=== PATIENT | male | born 1955 | race Caucasian/White ===

== ENCOUNTER 2019-10-30 15:18 | Observation (INO) | payer MEDICARE ==
--- NOTE | 2019-10-30 15:40 | ED ---
Abdominal Pain/Male - HPI Summary HPI Summary: Patient is a 64 y/o M presenting to the ED via EMS for a chief complaint of RUQ abdominal pain began at 16:30 on 10/29/19. Patient was transferred ED to ED from [facility] with a diagnosis of cholelithiasis. No medications were administered by EMS. Patient was seen at [facility] for RUQ abdominal pain, nausea , and vomiting, and had a CT and ultrasound performed. Labs at [facility] showed normal LFTs. At [facility], patient was given Zosyn, Protonix, and Zofran. Dr. Redmond from surgery recommended the patient be admitted to medicine. Patient states he ate judd, pumpkin pie, and chocolate brownies on 10/29/19, after which he began to feel RUQ abdominal pain. He later felt nausea and began vomiting around 17:00 on 10/29/19. He tried using homeopathic remedies including vinegar, peppermint tea, and a probiotic without relief. He rates his pain at that time was 10/10 in severity, but is now 9/10 in severity. Patient denies any fever, chills, erythema of eyes, sore throat, CP, SOB, cough, dysuria , hematuria, myalgia, edema, rash, or dizziness. PMHx is significant for non- insulin dependent DM, and PSHx is significant for back surgery. Patient lives in [place], [place]. - History of Current Complaint Chief Complaint: EDAbdPain Stated Complaint: ABD PAIN FROM WESTERN Time Seen by Provider: 10/30/19 15:32 Hx Obtained From: Patient Onset/Duration: Sudden Onset, Still Present Timing: Constant Severity Initially: Severe Severity Currently: Severe Pain Intensity: 9 Pain Scale Used: 0-10 Numeric Location: Discrete At: RUQ Radiates: No Aggravating Factor(s): Nothing Alleviating Factor(s): Nothing, Other: - No relief with vinegar, peppermint tea , or probiotic Associated Signs And Symptoms: Positive: Nausea, Vomiting. Negative: Fever, Cough, Chest Pain, Dizzy, Urinary Symptoms - Negative dysuria or hematuria - Allergies/Home Medications Allergies/Adverse Reactions: Allergies Allergy/AdvReac Type Severity Reaction Status Date / Time tizanidine Allergy Severe AFTER Verified 06/09/19 13:29 TAKING DEVELOPED TYPII DM & PANCRETITIS acetaminophen Allergy Rash Verified 06/09/19 13:29 [From Darvocet-N] ciprofloxacin Allergy Diarrhea Verified 06/09/19 13:29 levofloxacin [From Levaquin] Allergy Diarrhea Verified 06/09/19 13:29 propoxyphene Allergy Rash Verified 06/09/19 13:29 [From Darvocet-N] PMH/Surg Hx/FS Hx/Imm Hx Previously Healthy: Yes Endocrine/Hematology History: Reports: Hx Diabetes - Resolved, Hx Thyroid Disease - PARTIAL THYROIDECTOMY Denies: Hx Bone Marrow Disease, Hx Anemia Cardiovascular History: Denies: Hx Congestive Heart Failure, Hx Hypertension, Hx Pacemaker/ICD Respiratory History: Reports: Hx Seasonal Allergies Denies: Hx Asthma, Hx Sleep Apnea GI History: Reports: Hx Gastroesophageal Reflux Disease - FROM RECENT PANCREATITIS Denies: Hx Crohn's Disease, Hx Irritable Bowel - DOES HAVE SENSITIVE STOMACH History: Denies: Hx Dialysis, Hx Renal Disease Musculoskeletal History: Reports: Hx Arthritis, Hx Back Problems - multiple back surguries, Hx Fibromyalgia Denies: Hx Bursitis, Hx Tendonitis Sensory History: Reports: Hx Contacts or Glasses Denies: Hx Cataracts, Hx Legally Blind, Hx Deafness, Hx Hearing Aid Opthamlomology History: Reports: Hx Contacts or Glasses Denies: Hx Cataracts, Hx Legally Blind EENT History: Denies: Hx Deafness Neurological History: Denies: Hx Headaches, Hx Seizures Psychiatric History: Reports: Hx Anxiety, Hx Depression, Hx Panic Disorder - Surgical History Surgical History: Yes Surgery Procedure, Year, and Place: SPINAL CORD STIMULATOR 2011/ [facility] PER DR JERNIGAN). KNEE SCOPES x3(RT X2, LEFT X1). LOW BACK SURGERY 04/2018 DOUBLE LAMINECTOMY- 2011 [facility] SURGERY. 2 CERVICAL SPINE FUSIONS(PLATES/SCREWS). RT SHOULDER FOR PINCHED NERVES. RT MIDDLE FINGER TRAUMATIC AMPUTATON AND DEBRIDEMNET. ERCP WITH SEPSIS Hx Anesthesia Reactions: No - Immunization History Date of Tetanus Vaccine: Unk Date of Influenza Vaccine: None Immunizations Up to Date: Yes Infectious Disease History: No Infectious Disease History: Denies: Traveled Outside the [place] in Last 30 Days - Family History Known Family History: Negative: Hypertension, Diabetes - Social History Occupation: Employed Full-time Lives: Alone Alcohol Use: Rare Hx Substance Use: Yes Substance Use Type: Reports: Marijuana Substance Use Comment - Amount & Last Used: weekly Hx Tobacco Use: Yes Smoking Status (MU): Former Smoker Review of Systems Negative: Fever, Chills Negative: Erythema Negative: Sore Throat Negative: Chest Pain Negative: Shortness Of Breath, Cough Positive: Abdominal Pain - RUQ, Vomiting, Nausea Negative: dysuria, hematuria Negative: Myalgia, Edema Negative: Rash Neurological: Other - Negative dizziness All Other Systems Reviewed And Are Negative: Yes Physical Exam - Summary Physical Exam Summary: Constitutional: Well-developed, Well-nourished, Alert. (-) Distressed Skin: Warm, Dry HENT: Normocephalic; Atraumatic Eyes: Conjunctiva normal Neck: Musculoskeletal ROM normal neck. (-) JVD, (-) Stridor, (-) Tracheal deviation Cardio: Rhythm regular, rate normal, Heart sounds normal; Intact distal pulses; The pedal pulses are 2+ and symmetric. Radial pulses are 2+ and symmetric. (-) Murmur Pulmonary/Chest wall: Effort normal. (-) Respiratory distress, (-) Wheezes, (-) Rales Abd: Soft, (-) Distension, (-) Guarding, (-) Rebound. RUQ tenderness Musculoskeletal: (-) Edema Lymph: (-) Cervical adenopathy Neuro: Alert, Oriented x3 Psych: Mood and affect Normal Triage Information Reviewed: Yes Vital Signs On Initial Exam: Initial Vitals Temp Pulse Resp BP Pulse Ox 99.3 F 67 17 163/87 97 10/30/19 15:21 10/30/19 15:21 10/30/19 15:21 10/30/19 15:21 10/30/19 15:21 Vital Signs Reviewed: Yes Procedures - Sedation Patient Received Moderate/Deep Sedation with Procedure: No Diagnostics - Vital Signs Vital Signs Temp Pulse Resp BP Pulse Ox 10/30/19 15:21 99.3 F 67 17 163/87 97 - Laboratory Result Diagrams: 10/30/19 16:54 Lab Statement: Any lab studies that have been ordered have been reviewed, and results considered in the medical decision making process. Abdominal Pain Male Course/Dx - Course Course Of Treatment: Patient is a 64 y/o M presenting to the ED via EMS for a chief complaint of RUQ abdominal pain began at 16:30 on 10/29/19. Patient was transferred ED to ED from [facility] with a diagnosis of cholelithiasis. No medications were administered by EMS. Patient was seen at [facility] for RUQ abdominal pain, nausea, and vomiting, and had a CT and ultrasound performed. Labs at [facility] showed normal LFTs. At [facility], patient was given Zosyn, Protonix, and Zofran. Dr. Redmond from surgery recommended the patient be admitted to medicine. Patient states he ate judd, pumpkin pie, and chocolate brownies on 10/29/19, after which he began to feel RUQ abdominal pain. He later felt nausea and began vomiting around 17:00 on 10/29/19. He tried using homeopathic remedies including vinegar, peppermint tea, and a probiotic without relief. He rates his pain at that time was 10/10 in severity, but is now 9/10 in severity. Patient denies any fever, chills, erythema of eyes, sore throat, CP , SOB, cough, dysuria, hematuria, myalgia, edema, rash, or dizziness. PMHx is significant for non-insulin dependent DM, and PSHx is significant for back surgery. On exam, RUQ tenderness. In the ED course, patient was given morphine 4 mg IV and fluids. At 16:45, Dr. Rothman agrees to admit the patient to [facility] with a diagnosis of cholelithiasis. Patient will be admitted to [facility] with a diagnosis of cholelithiasis. - Diagnoses Provider Diagnoses: Cholelithiasis - Provider Notifications Discussed Care Of Patient With: Vita Rothman - At 16:45, Dr. Rothman agrees to admit the patient to [facility] with a diagnosis of cholelithiasis. Time Discussed With Above Provider: 16:45 Instructed by Provider To: Admit As Inpatient Discharge ED - Sign-Out/Discharge Documenting (check all that apply): Patient Departure - Admit - Discharge Plan Condition: Stable Disposition: ADMITTED TO [facility] - Attestation Statements Document Initiated by Scribe: Yes Documenting Scribe: Flores Edward Provider For Whom Scribe is Documenting (Include Credential): Joel Thayer MD Scribe Attestation: Flores Tang, scribed for Joel Thayer MD on 10/30/19 at 9751. Status of Scribe Document: Ready
[2019-10-30] MEDS ORDERED: Morphine 4 MG/ML VIAL (1 ml) 4 MG/ML VIAL IV ONE (16:00)
[2019-10-30] MEDS ORDERED: NS 0.9% 1000 ML** 2,000 ML IV ONE (16:00)
[2019-10-30] MEDS ORDERED: Morphine INJ* 4 MG/ML 1 ML SYRINGE (NEW SYRINGE VERSION) IV PRN (16:55)
[2019-10-30] MEDS ORDERED: PROCHLORPERAZINE INJ 5 MG/ML 2 ML VIAL IV PRN (16:56)
[2019-10-30] MEDS ORDERED: NS 0.9% 1000 ML** 1,000 ML IV SCH (17:00)
[2019-10-30 17:02] LABS: Hematocrit 38 % (42-52); Hemoglobin 13.3 g/dL (14.0-18.0); Mean Corpuscular HGB Conc 35 g/dL (31-36); Mean Corpuscular Hemoglobin 31 pg (27-31); Mean Corpuscular Volume 90 fL (80-94); Mean Platelet Volume 7.2 fL (7.4-10.4); Platelet Count 255 10^3/uL (150-450); Red Blood Count 4.27 10^6 /uL (4.18-5.48); Red Cell Distribution Width 13 % (10-15); White Blood Count 13.5 10^3/uL (3.5-10.8)
[2019-10-30] MEDS ORDERED: Piperacillin/Tazobac ADVAN(*) 3.375 GM in NS 0.9% 100 ML* 100 ML IVPB ONE (17:09)
[2019-10-30 17:19] LABS: Albumin 3.8 g/dL (3.2-5.2); Albumin/Globulin Ratio 1.4 (1-3); Calcium 8.8 mg/dL (8.6-10.3); EGFR African American 91.3 (>60); EGFR Non-African American 75.5 (>60); Globulin 2.8 g/dL (2-4); Potassium 3.6 mmol/L (3.5-5.0); Total Bilirubin 0.7 mg/dL (0.2-1.0); Total Protein 6.6 g/dL (6.4-8.9)
[2019-10-30] MEDS ORDERED: Bupivacaine 0.5%* 50 ML MDV VIAL ONE (17:23)
[2019-10-30] MEDS ORDERED: Buffered Lidocaine 1% SYRIN* 1 ML/SYRINGE INTRADERM ONE (17:27)
[2019-10-30] MEDS ORDERED: Famotidine IV* 10 MG/ML 2 ML (20 mg) IV ONE (17:27)
[2019-10-30] MEDS ORDERED: Famotidine IV* 10 MG/ML 2 ML (20 mg) ONE (17:33)
[2019-10-30] MEDS ORDERED: ceFOXitin 2 GM IVPREMIX* 2 GM/50 ML BAG ONE (17:48)
[2019-10-30] MEDS ORDERED: Zosyn per Pharmacy* NOTE FOLLOW UP SCH (18:00)
[2019-10-30] MEDS ORDERED: Lactated Ringers 1000 ML Bag* 1,000 ML IV SCH ×2 (18:00→23:00)
[2019-10-30] MEDS ORDERED: Propofol* 10 MG/ML 20 ML BTL ONE (18:16)
[2019-10-30] MEDS ORDERED: Lidocaine 2% PF * 5 ML VIAL ONE (18:16)
[2019-10-30] MEDS ORDERED: Succinylcholine* 20 MG/ML 10 ML VIAL ONE (18:16)
[2019-10-30] MEDS ORDERED: Midazolam* 1 MG/ML 2 ML VIAL (2 MG) ONE (18:16)
[2019-10-30] MEDS ORDERED: fentaNYL* 50 MCG/ML 2 ML VIAL (100 MCG VIAL) ONE (18:16)
[2019-10-30] MEDS ORDERED: Rocuronium* 10 MG/ML VIAL ONE (18:34)
[2019-10-30] MEDS ORDERED: Dexamethasone IV* 4 MG/ML 1 ML (4 MG) ONE (18:41)
[2019-10-30] MEDS ORDERED: fentaNYL* 50 MCG/ML 2 ML VIAL (100 MCG VIAL) IV PRN (19:00)
[2019-10-30] MEDS ORDERED: Naloxone* 0.4 MG/ML 1 ML VIAL IV PRN (19:00)
[2019-10-30] MEDS ORDERED: DiMENhydriNATE IV* 50 MG/ML VIAL IV PUSH PRN (19:00)
[2019-10-30] MEDS ORDERED: oxyCODONE TAB* 5 MG TAB PO PRN (19:00)
[2019-10-30] MEDS ORDERED: Ondansetron INJ* 2 MG/ML VIAL ONE (19:13)
[2019-10-30] MEDS ORDERED: Ketorolac INJ* 30 MG/ML 1 ML VIAL ONE (19:13)
[2019-10-30] MEDS ORDERED: Sugammadex * 200 MG/2 ML VIAL IV PUSH ONE (19:13)
[2019-10-30] MEDS ORDERED: Acetaminophen IV 1GM/100ML * 100 ML ONE (19:13)
[2019-10-30] MEDS ORDERED: Metoclopramide IV* 5 MG/ML 2 ML VIAL ONE (19:13)
--- NOTE | 2019-10-30 19:23 | BRIEFOPN ---
Brief Operative/Procedure Note - Operation Details Pre-Op Diagnosis: acute cholecystitis Post-Op Diagnosis: same Procedures: laparoscopic cholecystectomy Surgeon(s)/Proceduralists: Raudel. Assist: VICENTE Marshall Anesthesia: GET Estimated Blood Loss: 50 ml; fluids: 1000 ml RL Findings: as above Specimen(s)/Culture(s) Description: gallbladder Complications: none
--- NOTE | 2019-10-30 19:37 | CONS ---
CONSULTATION REPORT: DATE OF CONSULT: 10/30/19 CHIEF COMPLAINT: Abdominal pain. HISTORY OF PRESENT ILLNESS: This pleasant 64-year-old gentleman was transferred to our emergency room from the [facility] after workup revealed cholecystitis. He began having some pain yesterday in the epigastrium and right upper quadrant. No shoulder pain. No jaundice, acholic stools, or dark urine. He had nausea and vomiting. No fevers or chills. He has not had pain like this before. Workup in the emergency room included CT scan and ultrasound, which revealed a thickened, distended gallbladder with pericholecystic fluid concerning for cholecystitis. Pain severity 7/10, sharp, right upper quadrant, relieved somewhat with pain medication, made worse by food. In [place], his pain was 10/10 on initial presentation. PAST MEDICAL HISTORY: Denies a history of liver, kidney, or lung disease. Denies cardiac history. He has a history of gastroesophageal reflux disease and a recent bout of pancreatitis. He has had a history of anxiety, depression , and panic disorder. PAST SURGICAL HISTORY: No prior abdominal surgery. MEDICATIONS: He received Zosyn in the emergency room. ALLERGIES: CEPHALOSPORINS. FAMILY HISTORY: Denies history of colorectal or breast cancer. SOCIAL HISTORY: He is here with his sister. Nonsmoker. REVIEW OF SYSTEMS: General: Denies weight loss or change in appetite. HEENT: No changes in vision, hearing, or swallowing. No sore throat. Cardiac: No chest pain. Pulmonary: No cough. GI: No blood per rectum. : No hematuria. Skin: Denies rash. Neuro: No headache or dizziness. Musculoskeletal: No lower extremity weakness. Psych: No active anxiety or depression. PHYSICAL EXAMINATION: General: A pleasant gentleman, complaining of abdominal pain. HEENT: The sclerae are anicteric. Oral mucosa is pink and moist. Neck is supple. No JVD. No masses. Heart is regular. Lungs are clear anteriorly. Abdomen soft, nondistended. Tender in the epigastrium and right upper quadrant. No masses or organomegaly. Skin: No rash, petechiae, or jaundice. Extremities: No clubbing, cyanosis, or edema. Back: No vertebral or CVA tenderness. Genitalia: Normal. LABORATORY STUDIES: Showed elevated white blood cell count of 13,000. No elevated bilirubin or LFTs. IMPRESSION: Cholecystitis. We discussed treatment options including conservative treatment with antibiotics as well as surgical intervention. We discussed laparoscopic cholecystectomy with risks included but not limited to bleeding, infection, injury to intraabdominal contents including the bowel, bile duct, liver, other intraabdominal structures, cystic duct leak, myocardial infarction, pneumonia, pulmonary embolism, arrhythmia, and even explained to the patient. He would like to proceed with surgery, gave consent, and all questions were answered. [id number]/[facility] #: [id number] [facility]
--- NOTE | 2019-10-30 21:16 | OP ---
DATE OF OPERATION: 10/30/19 - ROOM #332 DATE OF : 57 SURGEON: Mariano Starks MD GENERAL UTILITY MAINTENANCE REPAIRER: VICENTE Geiger PRE-OP DIAGNOSIS: Cholecystitis. POST-OP DIAGNOSIS: Cholecystitis. OPERATIVE PROCEDURE: Laparoscopic cholecystectomy. INDICATION FOR PROCEDURE: Cholecystitis. Risks included, but not limited to, bleeding, infection, injury to intraabdominal contents including the bowel, bile duct, liver, HI, pneumonia, PE, arrhythmia, even explained to the patient who seemed to understand and agreed to the procedure and all questions were answered. DESCRIPTION OF PROCEDURE: The patient was taken to the operating room, placed supine. Preoperative antibiotics were given. After the successful induction of general endotracheal anesthesia, a time-out was performed indicating correct patient and correct procedure planned. A 5-mm trocar was placed at Amato's point in the left upper quadrant under direct visualization of the camera using a bladeless Optiview trocar. Pneumoperitoneum was achieved with 15 mmHg. Camera was placed in the abdomen. The abdomen was scanned. There was no obvious injury from trocar placement. A 12-mm infraumbilical and two right- sided 5-mm trocars were placed in similar fashion. The fundus of the gallbladder was grasped and retracted up and over the liver. The gallbladder was enlarged and acutely inflamed and edematous. The cystic duct was identified , isolated, clipped, and divided. The cystic artery was identified, isolated, clipped and divided. The gallbladder was removed from the hepatic bed using Bovie cautery hook. It was placed into an Endo bag and removed through the umbilical port site. The right upper quadrant was irrigated and aspirated dry. Hemostasis was intact. EBL was approximately 50 cc for the case. Clips were noted to be in place on the cystic duct into the long cystic artery. The abdomen was scanned and there were no obvious injuries noted. The omentum was gently tucked in the hepatic bed. The pneumoperitoneum was released from the abdomen and the trocars were removed. The midline fascia at the umbilicus was closed with an interrupted 0 Vicryl suture. The skin was closed with 3-0 Monocryl at each site. Glue was applied over that. The patient tolerated the procedure well. He was extubated and taken to Recovery in stable condition. [id number]/[facility] #: [id number] [facility]
--- NOTE | 2019-10-30 21:24 | HP ---
CC: Dr. Timothy Gibbons; Dr. Mariano Starks * HISTORY AND PHYSICAL: DATE OF ADMISSION: 10/30/19 TIME OF EVALUATION: 4:45 p.m. PRIMARY CARE PROVIDER: Dr. Timothy Gibbons. CONSULTING GENERAL SURGEON: Dr. Mariano Starks. CHIEF COMPLAINT: "Terrible abdominal pain." HISTORY OF PRESENT ILLNESS: Mr. Nolan is a 64-year-old male with a past medical history of multiple spinal surgeries, prior hyperglycemia in the setting of pancreatitis, who presented to the emergency room with severe abdominal pain. The patient states he was in his usual state of health yesterday when around 4: 30, he ate judd, brownies and pumpkin pie. He states that immediately after that he started to experience severe epigastric pain radiating to both left and right upper quadrants that he rates as a 9/10. He tried some home remedies including drinking vinegar with no improvement. Overnight, he had multiple episodes of vomiting and finally around 4:30 in the morning he called his sister , requesting to go to a hospital. He was initially seen at [facility] and after his evaluation there he was found to have acute cholecystitis. He was then transferred to our facility for further evaluation and management. He denies fever, chills, diarrhea. Denies any prior episodes of pain like this. He denies chest pain. He states that he has a good exercise capacity. No shortness of breath. He can carry on his usual activities of daily living with no assistance. PAST MEDICAL HISTORY: 1. Chronic low back pain. 2. Anxiety. 3. Depression. 4. Admission in December 2015 when the patient had an ERCP for elevated LFTs. The patient had an ERCP with Dr. Chavez in 2014 and the impression was the patient probably had a distal common bile duct malignancy and a biliary stent was placed. Later on, malignancy was ruled out and he had an ERCP to remove the biliary stent and this was complicated by pancreatitis. During that episode, the patient was hyperglycemic and had a diagnosis of type 2 diabetes, but he reports that that has since resolved and his last hemoglobin A1c in April 2019 was 5.5. His A1c in October 2015 was 11.5. 5. S/p partial thyroidectomy. 6. Status post multiple lumbar and cervical spine surgeries including a spinal stimulator insertion and removal. 7. Status post shoulder surgery. 8. Status post knee surgery. MEDICATIONS: Medication list is not available at this time and will need to be confirmed. ALLERGIES: The patient has reported reactions to TIZANIDINE, ACETAMINOPHEN, CIPROFLOXACIN, LEVOFLOXACIN, PROPOXYPHENE. FAMILY HISTORY: The patient's father was a smoker and of esophageal cancer. His mother in late 80s from congestive heart failure. Siblings have multiple diseases including rheumatoid arthritis, ulcerative colitis, breast cancer. SOCIAL HISTORY: The patient was a smoker from age 20 until 2010, a pack per day. He states that he also used to drink and quit around 2009. He states that he experimented with drugs when he was much younger, but now he uses only marijuana. Surrogate decision maker is his sister Ludy Madison, phone number is [phone]. REVIEW OF SYSTEMS: A 14-point review of systems was performed and all the pertinent negative and positive as per HPI. PHYSICAL EXAMINATION GENERAL: The patient is a pleasant gentleman, lying in the ED stretcher, in no acute distress. VITAL SIGNS: Temperature 99.3, heart rate is 67, respiratory rate is 17, oxygen saturation is 100% on room air, blood pressure is 163/87. HEENT: Pupils are equal. No scleral icterus. Moist mucous membranes. CHEST: Breath sounds present bilaterally with no added sounds. CVS: Normal S1, S2. Regularly rate and rhythm. ABDOMEN: Soft with severe tenderness of the right upper quadrant, but mild tenderness of the epigastrium. In left upper quadrant, no guarding, no rebound. Bowel sounds are present. EXTREMITIES: No edema. NEURO: He is alert and oriented x3. Able to move all 4 extremities. LABORATORY AND IMAGING DATA: There are no labs done at [facility], but labs done at [facility] show sodium of 140, potassium of 3.5, chloride of 101, bicarb of 30, anion gap of 9, BUN of 14, creatinine of 1.0, glucose of 125, calcium is 8.9. Total bilirubin 0.4, ASTs 21, ALTs 27, alk phos is 70. Troponin 0.01. Amylase is 98. CBC showed a WBC of 13.3, hemoglobin of 14, hematocrit of 41, platelets of 294 with 82% neutrophils. His urinalysis is negative. Imaging done at [facility] includes a right upper quadrant ultrasound that showed hydropic appearing gallbladder with wall thickening and pericholecystic edema with positive sonographic Courtney sign. No biliary dilatation. CT of the abdomen showed edematous appearing gallbladder with pericholecystic fluid without biliary dilatation. ASSESSMENT AND PLAN: Mr. Nolan is a 64-year-old male with a past medical history of anxiety, depression, chronic back pain, episode of post-ERCP pancreatitis complicated with hyperglycemia at that time, who presented to the emergency room with complaints of right upper quadrant abdominal pain, recurrent nausea, vomiting after a greasy meal, found to have cholecystitis. 1. Acute cholecystitis. The patient will receive antibiotic treatment and he will be continued on Zosyn. General Surgery consultation was requested with Dr. Starks, as the patient eventually will require surgical management. His EKG done at [facility] shows sinus bradycardia at 57 beats per minute with a right bundle-branch block, no acute ischemic symptoms and the right bundle- branch block is new when compared to his prior EKG from 2016, but there is no sign of acute ischemia at this point. His RCRI is 1 predicting 1 to 1.3% risk of cardiac complications. Surgery will be scheduled as per General Surgery recommendation. 2. Hyperglycemia. I believe the patient was hyperglycemic in the setting of acute pancreatitis, but this does not seem to be an issue anymore. At this point, I am going to check his fingersticks every 4 hours, but no insulin coverage at this point. If his glucose goes above 200, we will need to start insulin. 3. DVT prophylaxis. The patient has a score of 2 on a DVT Prophylaxis Risk Assessment Guide and he will be started on SCDs for now and heparin after surgery depending on Surgery recommendation. 4. Code status is full. TIME SPENT: Approximately 55 minutes was spent with the patient and family interview, medical records review, physical examination to complete this admission, more than half of this time was spent [id number] with the patient and coordination of care. [id number]/[facility] #: [id number] [facility]ITAL[facility]
[2019-10-30] MEDS ORDERED: Acetaminophen TAB* 325 MG PO PRN (21:54)
[2019-10-30] MEDS ORDERED: clonazePAM TAB(*) 1 MG PO PRN (22:52)
[2019-10-30] MEDS ORDERED: Gabapentin CAP(*) 300 MG PO SCH (23:30)
[2019-10-30] MEDS ORDERED: DULoxetine DR CAP* 60 MG CAP.DR PO SCH (23:30)
[2019-10-30] MEDS ORDERED: traZODone TAB* 100 MG PO SCH (23:30)
[2019-10-30] MEDS: Gabapentin CAP(*) 100 MG PO SCH (23:39)
[2019-10-31] MEDS: HYDROcodone/ACETAMIN 5-325 MG* 1 TAB PO PRN ×2 (01:48→09:26)
[2019-10-31] MEDS ORDERED: Tamsulosin CAP* 0.4 MG PO SCH (09:00)
[2019-10-31] MEDS: Gabapentin CAP(*) 100 MG PO SCH (09:00)
--- NOTE | 2019-10-31 09:21 | PN ---
Progress Note - Progress Note Date of Service: 10/31/19 Note: S: POD #1. Doing well. Pain controlled. No N/V. Has not had anything more than clears thus far. Ambulating. O: Vital Signs - 8 hr 10/31/19 10/31/19 10/31/19 01:21 01:48 02:56 Temperature 98 F Pulse Rate 56 Respiratory 19 20 Rate Blood Pressure 96/60 (mmHg) O2 Sat by Pulse 98 94 Oximetry 10/31/19 10/31/19 10/31/19 03:53 07:56 09:00 Temperature 98 F Pulse Rate 57 Respiratory 18 16 18 Rate Blood Pressure 104/86 (mmHg) O2 Sat by Pulse 96 Oximetry Intake and Output Last 24 Hours 10/29/19 10/30/19 10/31/19 11/01/19 06:59 06:59 06:59 06:59 Intake Total 1915 Output Total 600 Balance 1315 Weight 194 lb Intake: IV Fluids 1025 LR 990 NS 35 IVPB 110 Zoysn 110 Oral 780 Output: Urine 600 Other: Estimated Void Small PE: (examined by PA student, Levon Arce) Gen: sitting up in bed; appears comfortable Heart: reg Lungs: clear Abd: +BS; lap sites ok; soft; mild to moderate tenderness throughout as well as at incisions A: s/p lap cholecystectomy for acute cholecystitis, doing well P: home today; instructions reviewed re: diet, wound care and activity; office f /u 11/07.
--- NOTE | 2019-10-31 09:46 | DS ---
AMENDED REPORT NOW INCLUDES DESIGNATED COSIGNER CC: Dr. Timothy Gibbons * DISCHARGE SUMMARY: DATE OF ADMISSION: 10/30/19 DATE OF DISCHARGE: 10/31/19 ATTENDING SURGEON: Dr. Mariano Starks.* (DICTATED BY VICENTE KNIGHT) HOSPITAL COURSE: Please refer to admission history and physical and operative note for details. The patient was taken to the operating room on the evening of 10/30/19 for diagnosis of acute cholecystitis. He underwent laparoscopic cholecystectomy. Surgery itself was uneventful. His postoperative course has been notable for improvement in pain and tolerance of diet. His pain is controlled with oral pain medication. See separate progress note from the same date. IMPRESSION: Status post laparoscopic cholecystectomy for acute cholecystitis, doing well. PLAN: The patient is discharged to home in good condition. Instructions were reviewed regarding diet, wound care, and activity. He will be seen in the office on 11/07/19 for followup. VICENTE KNIGHT [id number]/[facility] #: [id number] [facility]
--- NOTE | 2019-10-31 10:14 | PN ---
Subjective Date of Service: 10/31/19 Interval History: Seen this AM Pain well controlled Eating and drinking Objective Active Medications: Acetaminophen (Tylenol Tab*) 650 mg PO Q4H PRN PRN Reason: PAIN - MILD Hydrocodone Bitart/Acetaminophen ([place] 5-325 Tab*) 1 tab PO Q4H PRN PRN Reason: PAIN - MODERATE Last Admin: 10/31/19 09:26 Dose: 1 tab Clonazepam (Klonopin Tab(*)) 0.5 mg PO BEDTIME PRN PRN Reason: ANXIETY Duloxetine HCl (Cymbalta Cap*) 60 mg PO BEDTIME [facility] Last Admin: 10/30/19 23:40 Dose: 60 mg Gabapentin (Neurontin Cap(*)) 100 mg PO TID [facility] Last Admin: 10/31/19 09:00 Dose: 100 mg Morphine Sulfate (Morphine Inj (Syringe)*) 4 mg IV Q2H PRN PRN Reason: PAIN - SEVERE Prochlorperazine Edisylate (Compazine Inj*) 5 mg IV Q6H PRN PRN Reason: NAUSEA/VOMITING Tamsulosin HCl (Flomax Cap*) 0.4 mg PO DAILY [facility] Last Admin: 10/31/19 09:00 Dose: 0.4 mg Trazodone HCl (Desyrel Tab*) 100 mg PO BEDTIME [facility] Last Admin: 10/30/19 23:40 Dose: 100 mg Vital Signs - 8 hr 10/31/19 10/31/19 10/31/19 02:56 03:53 07:56 Temperature 98 F 98 F Pulse Rate 56 57 Respiratory 20 18 16 Rate Blood Pressure 96/60 104/86 (mmHg) O2 Sat by Pulse 94 96 Oximetry 10/31/19 10/31/19 09:00 09:26 Temperature Pulse Rate Respiratory 18 18 Rate Blood Pressure (mmHg) O2 Sat by Pulse Oximetry Oxygen Devices in Use Now: None Appearance: NAD Eyes: No Scleral Icterus Ears/Nose/Mouth/Throat: NL Teeth, Lips, Gums, Clear Oropharnyx Neck: NL Appearance and Movements; NL JVP, Trachea Midline Respiratory: Symmetrical Chest Expansion and Respiratory Effort, Clear to Auscultation Cardiovascular: RRR Abdominal: - - TTP wounds c/d/i Extremities: No Edema Skin: No Rash or Ulcers Neurological: Alert and Oriented x 3 Result Diagrams: 10/30/19 16:54 10/30/19 16:54 Assess/Plan/Problems-Billing Assessment: 64 yo M p/w cholecystitis s/p cholecystectomy - Patient Problems (1) Cholecystitis Comment: s/p OR 10/30 without complication fluids discontinued this AM PO pain management Advance diet per surgical team
[2019-10-31 11:20] VITALS: BP 136/65
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
--- OUTSIDE RECORDS SUMMARY | 2019-10-31 16:28 | XMS REPORT | Continuity of Care Document ---
:1955 External Reference #:[id number] Author Name Timothy Smyth MD (transmitted by agent of provider Larissa Zambrano) Address [address] [place] [address] Care Team Providers Name Role Phone Calixto Thapa MD - Anesthesiology Care Team Information [employer]communications [employer] [phone] Sergio Bee MD - Interventional Care Team Information [employer] Pain Medicine Jordon Sabillon MD - Endocrinology, Care Team Information Telecommunications [employer] [phone] Diabetes & Metabolism Problems Active Problems Provider Date Diabetes mellitus [...] 5 years quit, 2ppd Smoking Status Reviewed: 09/18/19 Former Cigarette Smoker ETOH Use 05/10/2017 Denies [...] Indications Ordering Provider Date Depomedrol 40MG Sharon Morataya, RPA-C 05/05/2018 Injection No Injection Nurse Visit [place] 04/01/2018 Injection No Injection Nurse Visit [place] 03/25/2018 Injection No Injection Nurse Visit [place] 03/18/2018 Injection Immunizations CPT Code Status Date Vaccine Lot # [id number] Given 09/15/2017 Influenza Virus Vaccine, Quadrivalent, Split, Preservative Free 92540 Given 12/10/2016 Pneumonia Vaccine [id number] Vital Signs Date Vital Result Comment 09/18/2019 9:40am Height 74 inches 6'2" Weight 195.00 lb Heart Rate 77 /min BP Systolic Sitting 134 mmHg BP Diastolic Sitting 86 mmHg Body Temperature 97.6 F BMI (Body Mass Index) 25.0 kg/m2 08/21/2019 11:20am Height 74 inches 6'2" Weight 194.31 lb Heart Rate 113 /min BP Systolic Sitting 118 mmHg BP Diastolic Sitting 80 mmHg Body Temperature 98.1 F BMI (Body Mass Index) 24.9 kg/m2 Results Test Date Facility Test Result H/L Range Note Laboratory test [facility] Hemoglobin A1c 5.5 % Normal 4.0-5.6 1 finding [address] (Glyco HGB) [place] [address] [phone] Urine [facility] Urine 37.66 mg/dL Microalbumin [address] [place] [address] [phone] Ur Microalbumin (mg/L) < 15.0 mg/L Urine Microalbumin/Creatinine TNP <31 2 Comp Metabolic 05/26/2019 [facility] Sodium 140 mmol/L Normal 135-[address] [place] [address] [phone] Potassium 4.3 mmol/L Normal 3.5-5.0 Chloride 101 [...] Egfr 86.6 >60 3 Lipid Profile 05/26/2019 [facility] Triglycerides 287 mg/dL 4 (Trig/Chol/HDL) [address] [place] [address] [phone] Cholesterol 315 mg/dL 5 HDL Cholesterol 63.4 mg/dL 6 LDL Cholesterol 194 mg/dL 7 1 Therapeutic target for the treatment of diabetes mellitus patients is <7% HBA1C, and in selective patients <6.0%. Please refer to [place] [employer] diabetic care guidelines for further [...] >189 Procedures Date Code Description Status 07/03/2019 62679 Inject/Drain Joint/Bursa Major W/O US Completed 05/28/2016 [id number] Diabetic Foot Exam Completed 11/29/2011 94903602 Colonoscopy Completed Medical Devices Description No Information Available Encounters Type Date Location Provider Dx Diagnosis Office Visit 08/21/2019 [facility] Timothy Linares S99.912A Unspecified injury 11:00a at [place] [facility] MD of left ankle, initial encounter S99.922A Unspecified injury of left foot, initial encounter Office Visit 07/03/2019 9:30a [facility] Timothy Linares M25.552 Pain in at [place] [facility] MD left hip M75.51 Bursitis of right shoulder Office 06/26/2019 [facility] M47.26 Other spondylosis Visit 4:00p [facility] Faye Trivedi MD with radiculopathy, lumbar region M48.061 Spinal stenosis, lumbar region without neurogenic agueda M54.2 Cervicalgia Office Visit 05/31/2019 [facility] E[facility] M54.16 Radiculopathy, 2:30p Services Of VICENTE Arana lumbar region Office Visit 05/26/2019 [facility] Internal Asia Gordon, N50.812 Left testicular 11:00a Medicine - [facility] pain E11.65 Type 2 diabetes mellitus with hyperglycemia Office Visit 05/24/2019 4:00p Surgical Mariano Cabello N50.812 Left testicular [facility] MD pain Assessments Date Code Description Provider 09/18/2019 M75.51 Bursitis of right shoulder Timothy Smyth MD 08/21/2019 S99.912A [...] 06/26/2019 M48.061 Spinal stenosis, lumbar region without Vassilgurinder Trivedi MD neurogenic claudication 06/26/2019 M54.2 Cervicalgia Radha Trivedi MD 05/31/2019 M54.16 Lumbar radiculopathy VICENTE Gerard 05/26/2019 N50.812 Left testicular pain Asia Leyva MD 05/26/2019 E11.65 Type 2 diabetes mellitus with Asia Leyva MD hyperglycemia 05/24/2019 N50.812 Left testicular pain Mariano Starks MD Plan of Treatment Future Appointment(s):12/25/2019 10:00 am - Timothy Smyth MD at [facility] at [email or web address]/04/2019 9:30 am - Timothy Smyth MD at [facility] at [email or web address]/15/2019 1:00 pm - VICENTE Gerard at [facility]09/18/2019 - Timothy Smyth, MDM75.51 Bursitis of right shoulderNew Therapy:Physical TherapyFollow up:Follow up: 3 months prn Functional Status Description No Information Available Mental Status Description No Information Available Referrals Refer to Reason for Referral Status Appt Date Pain Treatment Center pt transferring from [facility] Received Partial clinic, complex history of chronic back and neck pain [address] [place], [place] [address] [phone] Nick Diana MD Created [address] [place] [address] [place] [address] [phone] Yaz Yeager MD pt demanding direct referral to Ortho for Sent 07/03/2019 evaluation of shoulder pain, refused evaluation by PCP [address] [facility] [place] [id number] [phone] Jimmy Millan MD pt demanding referral to orthopedics for left hip Sent pain, refusing evaluation by PCP [address] [facility] [address] [place], [place] [address] [phone] Pain Clinic pt transferring from [place] pain clinic, Received Partial chronic back and neck pain [address] [place] [address] [phone] [facility] 06/28/[address] [facility] [address] [facility] [address] [place] [address] [phone] Napoleon Rader MD Called referral office, they are currently not Sent taking outside referrals at this time 08/[address] [address] [phone]
== END 2019-10-31 14:20 | disposition home or self-care (01) ==
LOC: ED 15:18 → INTOOBSV 16:45 → SSU 16:45
PROVIDERS: ADMIT Internal Medicine; ATTEND Surgery
DX: K80.00 Calculus of gallbladder with acute cholecystitis without obstruction (principal); R10.11 Right upper quadrant pain; E03.9 Hypothyroidism, unspecified; K21.9 Gastro-esophageal reflux disease without esophagitis; F41.9 Anxiety disorder, unspecified; F32.9 Major depressive disorder, single episode, unspecified; M54.5 Low back pain; Z87.891 Personal history of nicotine dependence
CPT/HCPCS: 36415; 80053; 85027; 88304; 96374; 99284; A9270-GY; G0378; J0330; J0694; J1100; J1885; J2250; J2270; J2405; J2543; J2704; J2765; J3010; J3490

== ENCOUNTER 2023-09-20 05:47 | Observation (INO) ==
[2023-09-20] MEDS ORDERED: Buffered Lidocaine 1% SYRIN 1 ml INTRADERM ONE (06:00)
[2023-09-20] MEDS ORDERED: Lactated Ringers 1000 ml BAG 1,000 ML IV SCH (06:00)
[2023-09-20] MEDS ORDERED: ceFAZolin 2 GM in NS PREMIX 2 GM/100 ML BAG IVPB ONE (06:19)
[2023-09-20 06:21] LABS: Rapid COVID-19 Molecular Undetected (Undetected)
[2023-09-20] MEDS ORDERED: Vancomycin 1,000 MG VIAL ONE (06:51)
[2023-09-20] MEDS ORDERED: ROPIVACAINE 5 MG/ML 30 ML BTL (0.5%) ONE (07:28)
[2023-09-20] MEDS ORDERED: fentaNYL 100 mcg/2 ml 50 MCG/ML VIAL ONE ×2 (07:30→12:47)
[2023-09-20] MEDS ORDERED: fentaNYL 250 mcg/5 ml 50 MCG/ML 5 ml VIAL (250 MCG) ONE (07:36)
[2023-09-20] MEDS ORDERED: Phenylephrine IV 10 MG/ML 1 ml VIAL ONE (08:10)
[2023-09-20] MEDS ORDERED: Propofol 10 MG/ML 20 ML BTL ONE ×2 (08:31→10:17)
[2023-09-20] MEDS ORDERED: Lidocaine 2% PF 5 ML VIAL ONE (08:42)
[2023-09-20] MEDS ORDERED: Glycopyrrolate IV 0.2 MG/ML 1 ML VIAL ONE (08:59)
[2023-09-20] MEDS ORDERED: Ondansetron 4 mg VIAL 2 MG/ML 2 ml VIAL ONE (09:12)
[2023-09-20] MEDS ORDERED: Magnesium Hydroxide LIQ 30 ML UDC PO PRN (11:16)
[2023-09-20] MEDS ORDERED: Ondansetron ODT 4 mg TAB 4 MG TAB PO PRN (11:16)
[2023-09-20] MEDS ORDERED: Ondansetron 4 mg VIAL 2 MG/ML 2 ml VIAL IV PRN (11:16)
[2023-09-20] MEDS ORDERED: Lactulose 30 ml UDC PO PRN (11:16)
[2023-09-20] MEDS: fentaNYL 100 mcg/2 ml 50 MCG/ML VIAL IV PRN ×4 (12:50→13:17)
[2023-09-20] MEDS ORDERED: Phenylephrine 40 mcg/mL 10mL (400mcg) SYRINGE ONE (13:04)
[2023-09-20] MEDS ORDERED: Prochlorperazine 5 mg/ml 2 ml VIAL (10 mg) IV PRN (13:06)
[2023-09-20] MEDS ORDERED: HYDROmorphone 1 MG/1 ML SYRINGE IV PRN (13:06)
[2023-09-20] MEDS ORDERED: Naloxone 0.4 mg VIAL 0.4 mg/ml 1 ml VIAL IV PRN (13:06)
[2023-09-20] MEDS ORDERED: HYDROmorphone 1 MG/1 ML SYRINGE ONE (13:18)
[2023-09-20] MEDS: Lactated Ringers 1000 ml BAG 1,000 ML IV SCH (14:39)
[2023-09-20] MEDS: Acetaminophen IV 1 GM/100ML 1,000 MG/100 ML BAG IV PRN (15:42)
[2023-09-20] MEDS: ceFAZolin 1 GM ADVAN 1 GM in NS 0.9% 50 ML 50 ML IVPB SCH (17:17)
[2023-09-20] MEDS: Magnesium Hydroxide LIQ 30 ML UDC PO SCH (20:31)
[2023-09-20] MEDS ORDERED: DULoxetine DR 60 mg CAP PO SCH (21:00)
[2023-09-21] MEDS: Acetaminophen IV 1 GM/100ML 1,000 MG/100 ML BAG IV PRN ×2 (00:40→06:34)
[2023-09-21] MEDS: ceFAZolin 1 GM ADVAN 1 GM in NS 0.9% 50 ML 50 ML IVPB SCH ×2 (01:43→09:36)
[2023-09-21] MEDS: Lactated Ringers 1000 ml BAG 1,000 ML IV SCH (03:32)
[2023-09-21 05:59] LABS: Hematocrit 32.5 % (38-53); Hemoglobin 11.5 g/dL (13.2-16.3); Platelet Count 233 10^3/uL (150-450)
[2023-09-21 06:16] LABS: Creatinine, Serum 0.92 mg/dL (0.67-1.17); Potassium 3.9 mmol/L (3.5-5.0); eGFR CKD-EPI 91.2 (>60)
[2023-09-21] MEDS ORDERED: Vitamin THERAPEUTIC TAB PO SCH (09:00)
[2023-09-21] MEDS: Magnesium Hydroxide LIQ 30 ML UDC PO SCH (09:30)
[2023-09-21 10:38] VITALS: BP 167/82
== END 2023-09-21 15:22 | disposition home or self-care (01) ==
LOC: AA 05:47 → INTOOBSV 05:47 → SSU 11:16
PROVIDERS: ADMIT Orthopaedic Surgery; ATTEND Orthopaedic Surgery